=== PATIENT | male | born 1945 | race Caucasian/White ===

== ENCOUNTER 2024-05-03 15:42 | Emergency (ER) | payer OTHER ==
[2024-05-03] MEDS ORDERED: BUPIVACAINE 0.5% PF 10 ML VIAL ONE (16:38)
[2024-05-03] MEDS ORDERED: LIDOCAINE 2% MPF 5 ML VIAL ONE (16:38)
[2024-05-03] MEDS ORDERED: HYDROCODONE/APAP 5/325 MG TAB ONE (16:38)
[2024-05-03] MEDS ORDERED: TDAP (DIPHTH,PERTUSS(ACELL),TET VAC) 0.5 ML VIAL IMVAC ONE (16:39)
--- NOTE | 2024-05-03 17:18 | RAD REPORT ---
Exam:Finger-Thumb Left CLINICAL HISTORY: Left finger pain FINDINGS: Mildly to moderately displaced fracture second distal phalanx. Mild posterior subluxation second distal phalanx.
--- NOTE | 2024-05-03 17:47 | ER ---
Nurse's Notes [facility] Name: Michael Lopez Age: 79 yrs Sex: Male : 1945 Arrival Date: 05/03/2024 Time: 15:42 Bed 26 Private MD: Diagnosis: Displaced fracture of distal phalanx of left index finger-open Presentation: 05/03 16:05 Chief complaint: Left index finger caught in leaf blower motor, avulsion noted to hb fingertip. Coronavirus screen: At this time, the client does not indicate any symptoms associated with coronavirus-19. Ebola Screen: No symptoms or risks identified at this time. Initial Sepsis Screen: Does the patient meet any 2 criteria? No. Patient's initial sepsis screen is negative. Does the patient have a suspected source of infection? No. Patient's initial sepsis screen is negative. Risk Assessment: Do you want to hurt yourself or someone else? Patient reports no desire to harm self or others. Onset of symptoms was May 03, 2024. 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 - Infectious Disease History:: Denies. - Social history:: Smoking status: Patient denies any tobacco usage or history of. Screenin:15 [facility] ED Fall Risk Assessment (Adult) History of falling in the last 3 months, jb4 including since admission No falls in past 3 months (0 pts) Confusion or Disorientation No (0 pts) Intoxicated or Sedated No (0 pts) Impaired Gait No (0 pts) Mobility Assist Device Used No (0 pt) Altered Elimination No (0 pt) Score/Fall Risk Level 0 - 2 = Low Risk Oriented to surroundings, Maintained a safe environment. Abuse screen: Denies threats or abuse. Nutritional screening: No deficits noted. Tuberculosis screening: No symptoms or risk factors identified. Assessment: 16:30 General: Appears in no apparent distress. uncomfortable, Behavior is calm, cooperative, jb4 appropriate for age. Pain: Complains of pain in palmar aspect of distal phalanx of left index finger Pain does not radiate. Pain currently is 9 out of 10 on a pain scale. Quality of pain is described as throbbing. Neuro: Level of Consciousness is awake, alert, obeys commands, Oriented to person, place, time, situation. Cardiovascular: Patient's skin is warm and dry. Respiratory: Airway is patent Respiratory effort is even, unlabored, Respiratory pattern is regular, symmetrical. Derm: Skin is intact, Skin is pink, warm \T\ dry. Musculoskeletal: Circulation, motion, and sensation intact. Range of motion: intact in all extremities. 17:53 Reassessment: Initiated transfer to [facility] \T\ 1753. No answer through 1807. ss 18:00 Reassessment: Patient appears in no apparent distress at this time. Patient and/or jb4 family updated on plan of care and expected duration. Pain level reassessed. Patient is alert, oriented x 3, equal unlabored respirations, skin warm/dry/pink. 18:12 Reassessment: Initiated transfer at [facility]. No answer through 1825. ss 18:52 Reassessment: Reassessment: Initiated transfer at [facility]. ss 19:30 Reassessment: Patient appears in no apparent distress at this time. Patient and/or jb4 family updated on plan of care and expected duration. Pain level reassessed. Patient is alert, oriented x 3, equal unlabored respirations, skin warm/dry/pink. Report given to receiving facility. 20:37 Reassessment: Patient appears in no apparent distress at this time. Patient and/or jb4 family updated on plan of care and expected duration. Pain level reassessed. Patient is alert, oriented x 3, equal unlabored respirations, skin warm/dry/pink. Vital Signs: 16:05 BP 126 / 87; Pulse 70; Resp 16; Temp 97.8; Pulse Ox 100% on R/A; Weight 90.72 kg; hb Height 6 ft. 0 in. ; Pain 9/10; 18:15 BP 142 / 81; Pulse 85; Resp 20; Pulse Ox 98% on R/A; jb4 19:00 BP 139 / 88; Pulse 67; Resp 13; Pulse Ox 97% on R/A; jb4 20:15 BP 151 / 92; Pulse 66; Resp 16; Pulse Ox 95% on R/A; jb4 16:05 Body Mass Index 27.13 (90.72 kg, 182.88 cm) hb 16:05 Pain Scale: Adult hb ED Course: 15:44 Patient arrived in ED. mr 16:08 Triage completed. hb 16:09 Arm band placed on. hb 16:13 Moises Neal PA is PHCP. cp 16:13 Milton De Paz MD is Attending Physician. cp 17:07 XRAY Finger-Thumb Left In Process Unspecified. EDMS 18:22 No provider procedures requiring assistance completed. Patient transferred, IV remains jb4 in place. Inserted saline lock: 22 gauge in right antecubital area, using aseptic technique. Blood collected. 18:23 Basic Metabolic Panel Sent. jb4 18:23 CBC with Diff Sent. jb4 18:23 LFT's Sent. jb4 18:23 Magnesium Sent. jb4 18:23 PT-INR Sent. jb4 18:28 Michael York, ZOHRA is Primary Nurse. jb4 18:52 Initiated transfer with James at [facility]. rv1 19:[address] Vasquez to [facility] ER. rv1 19:27 Moises Rahman MD is Attending Physician. cp 20:15 Patient has correct armband on for positive identification. Bed in low position. Call jb4 light in reach. Side rails up X 1. Provided Education on: need for transfer. Administered Medications: 16:42 Drug: HYDROcodone-acetaminophen PO 5 mg-325 mg 1 tabs PO once Route: PO; jb4 19:14 Follow up: Response: No adverse reaction; Marked relief of symptoms; Pain is decreased jb4 16:42 Drug: Boostrix Tdap IM 0.5 ml IM once; as a single dose Route: IM; Site: right deltoid; jb4 19:14 Follow up: Response: No adverse reaction jb4 18:33 Drug: ceFAZolin IVPB 2 grams IVPB once over 30 mins; (mix in 100 mL NS) Route: IVPB; jb4 Infused Over: 30 mins; Site: right antecubital; 19:03 Follow up: Response: No adverse reaction; Marked relief of symptoms; IV Status: jb4 Completed infusion; IV Intake: 100ml 19:14 Drug: Lidocaine Infiltration (2 %) 5 ml 5 ml Infiltration once; to bedside {Note: jb4 Administered by Er provider.} Volume: 5 ml; Route: Infiltration; 19:14 Drug: Bupivacaine Infiltration (0.5 %) 10 ml 10 ml Infiltration once {Note: jb4 Administered by Er provider.} Volume: 10 ml; Route: Infiltration; Medication: 20:15 VIS not applicable for this client. jb4 Intake: 19:03 IV: 100ml; Total: 100ml. jb4 Outcome: 17:46 ER care complete, transfer ordered by MD. saeed 20:39 Transferred by ground EMS to [facility], Transfer form completed. X-rays sent jb4 w/ patient. 20:39 Condition: stable 20:39 Discharge instructions given to patient, family, Instructed on the need for transfer, Demonstrated understanding of instructions, 20:39 Patient left the ED. jb4 Signatures: Dispatcher [employer] EDYasmine Dsouza, Estuardo Marte mr Paula Jones, RN RN ss Moises Neal PA PA cp Baxter, Heather, ZOHRA RN Michael Rahman RN RN Sarahy Rico rv1 Corrections: (The following items were deleted from the chart) 16:09 16:05 Pulse 70bpm; Resp 16bpm; Pulse Ox 100% RA; Temp 97.8F; 90.72 kg; Height 6 ft.; hb BMI: 27.1; Pain 9/10, Adult; hb
--- NOTE | 2024-05-03 17:47 | EDPHYS ---
Physician Documentation [facility] Name: Michael Lopez Age: 79 yrs Sex: Male : 1945 Arrival Date: 05/03/2024 Time: 15:42 Bed 26 Private MD: ED Physician Moises Rahman HPI: 05/03 16:30 This 79 yrs old Male presents to ER via Ambulatory with complaints of Finger laceration.cp 16:30 The patient or guardian reports injury, pain. cp 16:30 The complaints affect the left index finger. Context: resulted from accident when cp finger contacted fan of leaf blower. Onset: The symptoms/episode began/occurred just prior to arrival. Associated signs and symptoms: The patient has no apparent associated signs or symptoms. Patient with pressure dressing in place upon presentation. 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 - Infectious Disease History:: Denies. - Social history:: Smoking status: Patient denies any tobacco usage or history of. ROS: 16:35 MS/extremity: Positive for injury or acute deformity, pain, of the distal phalanx of cp left index finger, 16:35 Eyes: Negative for injury, pain, redness, and discharge, cp 16:35 Constitutional: Negative for body aches, chills, fever, poor PO intake, 16:35 Respiratory: Negative for cough, shortness of breath, wheezing, 16:35 Abdomen/GI: Negative for abdominal pain, nausea, vomiting, and diarrhea, 16:35 Neuro: Negative for altered mental status, weakness, 16:35 All other systems are negative, Exam: 16:40 Constitutional: The patient appears in no acute distress, alert, awake, cp non-diaphoretic, non-toxic, well developed, well nourished, uncomfortable, 16:40 Head/Face: Normocephalic, atraumatic. cp 16:40 Chest/axilla: Inspection: normal, 16:40 Cardiovascular: Rate: normal, Rhythm: regular, 16:40 Respiratory: the patient does not display signs of respiratory distress, Respirations: normal, no use of accessory muscles, no retractions, labored breathing, is not present, Breath sounds: are clear throughout, no decreased breath sounds, no stridor, no wheezing, 16:40 Abdomen/GI: Inspection: abdomen appears normal, Palpation: abdomen is soft and non-tender, in all quadrants, 16:40 Back: pain, is absent, 16:40 Musculoskeletal/extremity: Extremities: noted in the left index finger: multiple deep lacerations noted distal phalanx with avulsion of skin fat pad area of digit, nail intact, ROM: full active range of motion, in the left index finger, Perfusion: the extremity is with brisk capillary refill, the distal phalanx left index finger decreased sensation, 18:16 ECG was reviewed by the Attending Physician. Vital Signs: 16:05 BP 126 / 87; Pulse 70; Resp 16; Temp 97.8; Pulse Ox 100% on R/A; Weight 90.72 kg; hb Height 6 ft. 0 in. ; Pain 9/10; 18:15 BP 142 / 81; Pulse 85; Resp 20; Pulse Ox 98% on R/A; jb4 19:00 BP 139 / 88; Pulse 67; Resp 13; Pulse Ox 97% on R/A; jb4 20:15 BP 151 / 92; Pulse 66; Resp 16; Pulse Ox 95% on R/A; jb4 16:05 Body Mass Index 27.13 (90.72 kg, 182.88 cm) hb 16:05 Pain Scale: Adult hb MDM: 16:13 Medical Screening Exam initiated 17:00 Differential diagnosis: dislocation, open fracture, closed fracture, contusion, nail cp injury. 17:25 Data reviewed: vital signs, nurses notes, radiologic studies, plain films, I have cp discussed the patient's presentation/case with the attending Emergency Department Physician; and as a result, I will transfer patient for consultation with hand surgery. 19:10 ED course: physician to physician consult done by DR Rahman and DR Vika Vasquez \T\[facility]. 19:15 I considered the following discharge prescriptions or medication management in the emergency department Medications were administered in the Emergency Department. See MAR. 19:15 Independent interpretation of the following test(s) in the Emergency Department X-Ray: My interpretation is images of left index finger show open fracture distal phalanx. Counseling: I had a detailed discussion with the patient and/or guardian regarding the historical points, exam findings, and any diagnostic results supporting the discharge/admit diagnosis, radiology results, the need to transfer to another facility, [facility] does not immediately have the required specialist. Response to treatment: the patient's symptoms have mildly improved after treatment. 05/03 17:45 Order name: Basic Metabolic Panel; Complete Time: 18:59 cp 05/03 17:45 Order name: CBC with Diff; Complete Time: 18:59 cp 05/03 17:45 Order name: LFT's; Complete Time: 18:59 cp 05/03 17:45 Order name: Magnesium; Complete Time: 18:59 cp 05/03 17:45 Order name: PT-INR; Complete Time: 18:59 cp 05/03 17:45 Order name: Ptt, Activated; Complete Time: 18:59 cp 05/03 16:18 Order name: XRAY Finger-Thumb Left; Complete Time: 17:22 cp 05/03 17:45 Order name: EKG; Complete Time: 17:46 cp 05/03 17:45 Order name: Cardiac monitoring; Complete Time: 18:16 cp 05/03 17:45 Order name: EKG - Nurse/Tech; Complete Time: 18:16 cp 05/03 17:45 Order name: IV Saline Lock; Complete Time: 18:23 cp 05/03 17:45 Order name: Labs collected and sent; Complete Time: 18:23 cp 10 17:45 Order name: O2 Per Protocol; Complete Time: 18:16 cp 05/03 17:45 Order name: O2 Sat Monitoring; Complete Time: 18:16 cp 05/03 18:14 Order name: Wound Care; Complete Time: 18:16 cp EC:16 Rate is 65 beats/min. Rhythm is regular. SD interval is normal. QRS interval is normal. cp QT interval is normal. T waves are Inverted in lead aVR. Interpreted by me. Reviewed by me. Administered Medications: 16:42 Drug: HYDROcodone-acetaminophen PO 5 mg-325 mg 1 tabs PO once Route: PO; jb4 19:14 Follow up: Response: No adverse reaction; Marked relief of symptoms; Pain is decreased jb4 16:42 Drug: Boostrix Tdap IM 0.5 ml IM once; as a single dose Route: IM; Site: right deltoid; jb4 19:14 Follow up: Response: No adverse reaction jb4 18:33 Drug: ceFAZolin IVPB 2 grams IVPB once over 30 mins; (mix in 100 mL NS) Route: IVPB; jb4 Infused Over: 30 mins; Site: right antecubital; 19:03 Follow up: Response: No adverse reaction; Marked relief of symptoms; IV Status: jb4 Completed infusion; IV Intake: 100ml 19:14 Drug: Lidocaine Infiltration (2 %) 5 ml 5 ml Infiltration once; to bedside {Note: jb4 Administered by Er provider.} Volume: 5 ml; Route: Infiltration; 19:14 Drug: Bupivacaine Infiltration (0.5 %) 10 ml 10 ml Infiltration once {Note: jb4 Administered by Er provider.} Volume: 10 ml; Route: Infiltration; Disposition Summary: 05/03/24 17:46 Transfer Ordered Notes: Transfer Location: [facility] cp Reason: Higher level of care cp Condition: Stable cp Problem: new cp Symptoms: have improved cp Accepting Physician: Doctor(05/03/24 20:39) jb4 Diagnosis - Displaced fracture of distal phalanx of left index finger - open cp Forms: - Medication Reconciliation Form cp - SBAR form cp Signatures: Dispatcher [employer] EDMS Moises Neal PA PA cp Aida Moreno RN RN Michael York RN RN jb4 Corrections: (The following items were deleted from the chart) 17:46 17:46 BASIC METABOLIC PANEL+C.LAB.BRZ ordered. EDMS EDMS 17:46 17:46 CBC+H.LAB.BRZ ordered. EDMS EDMS 17:46 17:46 HEPATIC FUNCTION+C.LAB.BRZ ordered. EDMS EDMS 17:46 17:46 MAGNESIUM+C.LAB.BRZ ordered. EDMS EDMS 17:46 17:46 PROTIME (+INR)+COAG.LAB.BRZ ordered. EDMS EDMS 17:46 17:46 PTT, ACTIVATED+COAG.LAB.BRZ ordered. EDMS EDMS 20:39 17:46 Doctor cp jb4
[2024-05-03] MEDS ORDERED: NA CHLORIDE 0.9% 100 ML ONE (18:25)
[2024-05-03] MEDS ORDERED: CEFAZOLIN SODIUM 2 GM/VIAL ONE (18:26)
[2024-05-03 18:31] LABS: Absolute Basophils 0.1 K/uL (0-0.5); Absolute Eosinophils 0.1 K/uL (0-0.5); Absolute Lymphocytes (CBC) 1.6 K/uL (0.7-4.9); Absolute Monocytes 0.6 K/uL (0.1-1.3); Absolute Neutrophil 5.3 K/uL (1.8-8.0); Eosinophils % 1.2 % (0-4.4); Hematocrit 42.1 % (39.6-49.0); Hemoglobin 14.2 g/dL (13.6-17.9); Lymphocytes % 20.5 % (15.3-44.8); MCH 31.7 pg (27.0-35.0); MCHC 33.9 g/dL (32.0-36.0); MCV 93.6 fL (80-100); MPV 9.4 fL (7.6-11.3); Monocytes % 8.2 % (3.3-12.3); Neutrophils % 69.1 % (41.7-73.7); Platelets 224 thou/uL (152-406); Red Cell Distribution Width 14.3 % (12.1-15.2)
[2024-05-03 18:40] LABS: PT Prothrombin Time 10.9 SECONDS (10-13.0); PTT, Activated Partial Thromb 33.1 SECONDS (27.2-37.4); Protime INR 0.95
[2024-05-03 18:49] LABS: ALT/SGPT 24 U/L (16-61); AST/SGOT 29 U/L (15-37); Albumin 3.7 g/dL (3.4-5.0); Albumin/Globulin Ratio 1.2 (1.1-1.8); Alkaline Phosphatase 39 U/L (45-117); Anion Gap 8.8 mEq/L (5.0-15.0); BUN Blood Urea Nitrogen 12 mg/dL (7-18); Bicarbonate 27 mEq/L (21-32); Bilirubin Total 0.4 mg/dL (0.2-1.0); Globulin 3.1 g/dL (2.3-3.5); Glomerular Filtration Rate 92 ml/min (=/>90); Glucose Level 88 mg/dL (74-106); Magnesium 2.2 mg/dL (1.6-2.4); Potassium 3.8 mEq/L (3.5-5.1); Protein, Total 6.8 g/dL (6.4-8.2); Sodium Level 138 mEq/L (136-145)
[2024-05-03 18:51] LABS: Bilirubin Direct < 0.2 mg/dL (0-0.2); Bilirubin Indirect, Calculated 0.2 mg/dL (0.2-0.8)
[2024-05-03 21:26] VITALS: TEMP 97.8
[2024-05-03 21:29] VITALS: BP 151/92; O2SAT 95
--- NOTE | 2024-05-04 10:57 | EKG ---
Test Date: 2024-05-03 Test Time: 18:11:58 Floor Worker Transfer Bay: MARICRUZ MEASUREMENT RESULTS: Intervals: Rate: 65 NV: 158 QRSD: 90 QT: 416 QTc: 432 Notrees: P: 54 NV: 158 QRS: 49 T: 53 INTERPRETIVE STATEMENTS: Normal sinus rhythm Normal ECG No previous ECG available for comparison Electronically Signed On 05-04-24 10:56:11 CDT by Keagan Mederos
== END 2024-05-03 20:39 | disposition short-term general hospital (02) ==
LOC: ER 15:42
DX: S62.631B Displaced fracture of distal phalanx of left index finger, initial encounter for open fracture (principal); W31.89XA Contact with other specified machinery, initial encounter
CPT/HCPCS: 96365; 93005; 85025; 80048; 36415; 83735; 85610; 80076; 85730; 73140; 96372; 99285; J2003